=== PATIENT | male | born 2000 | race Hispanic/Latino ===

== ENCOUNTER 2022-06-08 01:38 | Inpatient (IN) | payer OTHER ==
[2022-06-08] MEDS ORDERED: Boostrix 0.5 ML (Tdap) VIAL ONE (02:20)
[2022-06-08] MEDS ORDERED: Fentanyl 100 MCG/2 ML VIAL ONE ×2 (02:21→18:07)
[2022-06-08 02:40] LABS: #Eosinphils 0.1 thou/uL (0.0-0.7); #Lymphocytes 1.4 thou/uL (1.20-3.40); #Monocytes 0.7 thou/uL (0.11-0.59); #Neutrophils 9.6 thou/uL (1.40-6.50); %Basophils 0.4 % (0.0-1.0); %Eosinophils 0.5 % (0.0-10.0); %Lymphocytes 11.6 % (28.0-48.0); %Monocytes 5.6 % (0.0-4.0); Hemoglobin 17.8 g/dL (14.0-18.0); Mean Corpuscular HGB CONC 35.6 g/dL (32.0-36.0); Mean Corpuscular Hemoglobin 35.1 pg (25.0-35.0); Mean Corpuscular Volume 98.6 fL (78.0-98.0); Mean Platelet Volume 8.9 fL (7.4-10.4); Platelet Count 189 thou/uL (130-400); RBC Distribution Width 12.1 % (11.5-14.5); Red Blood Cell (RBC) Count 5.06 mill/uL (4.00-5.20); White Blood Cell (WBC) Count 11.7 thou/uL (4.8-10.8)
[2022-06-08 02:52] LABS: ALT (SGPT) 30 U/L (8-55); AST (SGOT) 27 U/L (5-34); Albumin 4.6 g/dL (3.5-5.0); Alkaline Phosphatase 91 U/L (50-130); Anion Gap 20 mmol/L (10-20); BUN (Urea Nitrogen) 10 mg/dL (8.9-20.6); Bilirubin, Total 0.7 mg/dL (0.2-1.2); Calc. Creatinine Clearance 0 mL/min (70-130); Calcium 9.4 mg/dL (7.8-10.44); Carbon Dioxide 17 mmol/L (22-29); Chloride 109 mmol/L (98-107); Estimated GFR 93; Globulin 3.2 g/dL (2.4-3.5); Glucose 121 mg/dL (70-105); Lipase 38 U/L (8-78); Potassium 3.5 mmol/L (3.5-5.1); Protein, Total 7.8 g/dL (6.0-8.3); Sodium 142 mmol/L (136-145)
[2022-06-08] MEDS ORDERED: Ondansetron ODT 4 MG TAB PO PRN (04:19)
[2022-06-08] MEDS ORDERED: Morphine 2 MG/ML VIAL SLOW IVP PRN (04:19)
[2022-06-08] MEDS ORDERED: hydrALAZINE 20 MG/ML VIAL SLOW IVP PRN (04:19)
[2022-06-08] MEDS ORDERED: Promethazine HCl 25 MG/ML VIAL IM PRN (04:19)
[2022-06-08] MEDS ORDERED: traMADol HCl 50 MG TAB PO PRN (04:23)
[2022-06-08] MEDS ORDERED: Cyclobenzaprine 10 MG TAB PO PRN (04:23)
[2022-06-08] MEDS ORDERED: Lidocaine 1% PF 5 ML VIAL ONE ×2 (05:57→15:42)
[2022-06-08 06:08] LABS: SARS-CoV-2 NAA Rapid Test Not Detected (NotDetected)
[2022-06-08 06:27] LABS: Lactic Acid 2.7 mmol/L (0.5-2.2)
[2022-06-08] MEDS: Famotidine/PF 20 mg/2ml Vial SLOW IVP SCH ×2 (08:29→19:55)
[2022-06-08] MEDS: Senokot S 8.6-50 MG TAB PO SCH ×2 (08:29→19:56)
[2022-06-08] MEDS: Gabapentin 300 MG CAP PO SCH ×3 (08:29→19:56)
[2022-06-08] MEDS: Acetaminophen 500 MG TAB PO SCH ×3 (08:30→18:54)
[2022-06-08] MEDS: Sodium Chloride 0.9% 1,000 ML IV SCH ×3 (08:30→19:56)
[2022-06-08] MEDS: Polyethylene Glycol 3350 17 GM Packet PO SCH (08:30)
[2022-06-08] MEDS: traMADol HCl 50 MG TAB PO SCH ×3 (08:30→18:54)
[2022-06-08 08:42] VITALS: BMI 29.0
[2022-06-08] MEDS ORDERED: Lidocaine 2% 20 ml MDV SC SCH (10:30)
[2022-06-08] MEDS ORDERED: Iopamidol-370 76% 500 ML 1 ML ONE (13:25)
[2022-06-08] MEDS ORDERED: Bacitracin Zinc Ointment 30 gm TUBE ONE (15:01)
[2022-06-08] MEDS ORDERED: Bupivacaine PF 0.5% 30 ML VIAL ONE (15:01)
[2022-06-08] MEDS ORDERED: Glycopyrrolate 0.2 MG/ML 5 ML SYRINGE ONE (15:42)
[2022-06-08] MEDS ORDERED: PROPOFOL 200 MG/20 ML VIAL ONE (15:42)
[2022-06-08] MEDS ORDERED: fentaNYL Citrate/PF 100 MCG/2 ML SYRINGE ONE (15:42)
[2022-06-08] MEDS ORDERED: Dexamethasone 20 MG/5 ML VIAL ONE (15:42)
[2022-06-08] MEDS ORDERED: Ondansetron PF 4 MG/2 ML Vial ONE (15:42)
[2022-06-08] MEDS: Morphine 4 MG/ML VIAL SLOW IVP PRN (21:30)
[2022-06-08] MEDS: CEFAZOLIN 1 GM in Sodium Chloride 0.9% 100 ML IVPB SCH (22:14)
[2022-06-09] MEDS: Acetaminophen 500 MG TAB PO SCH ×3 (00:26→12:12)
[2022-06-09] MEDS: traMADol HCl 50 MG TAB PO SCH ×3 (00:26→12:13)
[2022-06-09] MEDS: CEFAZOLIN 1 GM in Sodium Chloride 0.9% 100 ML IVPB SCH ×2 (04:51→08:33)
[2022-06-09 06:08] LABS: #Basophils 0.1 thou/uL (0.0-0.2); #Lymphocytes 1.5 thou/uL (1.20-3.40); #Monocytes 0.9 thou/uL (0.11-0.59); %Basophils 0.5 % (0.0-1.0); %Eosinophils 0.4 % (0.0-10.0); %Lymphocytes 12.8 % (28.0-48.0); %Neutrophils 78.4 % (31.0-61.0); Hemoglobin 15.1 g/dL (14.0-18.0); Mean Corpuscular HGB CONC 33.6 g/dL (32.0-36.0); Mean Corpuscular Hemoglobin 33.8 pg (25.0-35.0); Mean Platelet Volume 8.8 fL (7.4-10.4); Platelet Count 165 thou/uL (130-400); Red Blood Cell (RBC) Count 4.47 mill/uL (4.00-5.20); White Blood Cell (WBC) Count 11.4 thou/uL (4.8-10.8)
[2022-06-09] MEDS: Morphine 4 MG/ML VIAL SLOW IVP PRN (06:31)
[2022-06-09 06:36] LABS: Anion Gap 12 mmol/L (10-20); BUN (Urea Nitrogen) 10 mg/dL (8.9-20.6); Calc. Creatinine Clearance 193 mL/min (70-130); Calcium 8.3 mg/dL (7.8-10.44); Carbon Dioxide 24 mmol/L (22-29); Chloride 107 mmol/L (98-107); Estimated GFR 131; Glucose 94 mg/dL (70-105); Magnesium 1.9 mg/dL (1.7-2.2); Phosphorus 3.7 mg/dL (2.3-4.7); Potassium 3.9 mmol/L (3.5-5.1); Sodium 139 mmol/L (136-145)
[2022-06-09 07:40] VITALS: TEMP 98.2
[2022-06-09] MEDS: Senokot S 8.6-50 MG TAB PO SCH (08:32)
[2022-06-09] MEDS: Famotidine/PF 20 mg/2ml Vial SLOW IVP SCH (08:32)
[2022-06-09] MEDS: Gabapentin 300 MG CAP PO SCH ×2 (08:33→16:03)
[2022-06-09] MEDS: Polyethylene Glycol 3350 17 GM Packet PO SCH (08:34)
[2022-06-09 11:10] VITALS: BP 135/81
== END 2022-06-09 17:52 | disposition home or self-care (01) | DRG 513 ==
LOC: ERS 01:38 → SURG A 07:44
PROVIDERS: ADMIT Physician Assistant; ATTEND Surgery
PROC: 0PSQ04Z Reposition Left Metacarpal with Internal Fixation Device, Open Approach (ICD-10-PCS; principal; 2022-06-09)
DX: S62.317A Displaced fracture of base of fifth metacarpal bone, left hand, initial encounter for closed fracture (principal); S12.090A Other displaced fracture of first cervical vertebra, initial encounter for closed fracture; S27.0XXA Traumatic pneumothorax, initial encounter; S62.303A Unspecified fracture of third metacarpal bone, left hand, initial encounter for closed fracture; S62.308A Unspecified fracture of other metacarpal bone, initial encounter for closed fracture; F41.9 Anxiety disorder, unspecified; S62.325A Displaced fracture of shaft of fourth metacarpal bone, left hand, initial encounter for closed fracture; V89.2XXA Person injured in unspecified motor-vehicle accident, traffic, initial encounter
CPT/HCPCS: 12002; 36415; 70450; 71260; 72125; 74177; 76000; 80048; 80053; 83605; 83690; 83735; 84100; 85025; 86850; 86900; 86901; 90471; 90715; 93005; 96374; 96376; C1713; G0390; J0690; J1100; J2270; J2405; J2704; J3010; J3490; J7050; Q9967; S0020; S0028; U0002